=== PATIENT | male | born 1970 | race Caucasian/White ===

== ENCOUNTER 2023-04-14 13:11 | Outpatient (CLI) | payer BC ==
[~2023-04-14 13:11] MED LIST: Magnevist 469MG/ML 20 ML VIAL ONE
== END 2023-04-14 13:12 | disposition home or self-care (01) ==
LOC: CSHMRI 13:11
PROVIDERS: ATTEND Internal Medicine Rheumatology
DX: M24.111 Other articular cartilage disorders, right shoulder (principal); M79.672 Pain in left foot; M75.82 Other shoulder lesions, left shoulder; S43.432A Superior glenoid labrum lesion of left shoulder, initial encounter; M89.8X1 Other specified disorders of bone, shoulder; M65.812 Other synovitis and tenosynovitis, left shoulder; M94.8X1 Other specified disorders of cartilage, shoulder; M19.011 Primary osteoarthritis, right shoulder; M25.411 Effusion, right shoulder; M65.811 Other synovitis and tenosynovitis, right shoulder; M24.011 Loose body in right shoulder; M75.81 Other shoulder lesions, right shoulder; M75.111 Incomplete rotator cuff tear or rupture of right shoulder, not specified as traumatic; M67.921 Unspecified disorder of synovium and tendon, right upper arm
CPT/HCPCS: A9579

== ENCOUNTER 2023-11-20 09:57 | Outpatient (CLI) | payer BC ==
[2023-11-20 11:07] LABS: Anion Gap 13 mmol/L (10-20); BUN (Urea Nitrogen) 13 mg/dL (8.4-25.7); Calc. Creatinine Clearance 0 mL/min (70-130); Calcium 9.3 mg/dL (7.8-10.44); Carbon Dioxide 27 mmol/L (22-29); Chloride 107 mmol/L (98-107); Estimated GFR 101; Glucose 104 mg/dL (70-105); Potassium 3.7 mmol/L (3.5-5.1); Sodium 143 mmol/L (136-145)
== END 2023-11-20 09:58 | disposition home or self-care (01) ==
LOC: CSHLAB 09:57
PROVIDERS: ATTEND Family Medicine
DX: Z01.818 Encounter for other preprocedural examination (principal); K42.0 Umbilical hernia with obstruction, without gangrene
CPT/HCPCS: 80048; 93005; 93010

== ENCOUNTER 2023-11-26 05:56 | Day surgery (SDC) | payer BC ==
[2023-11-20 10:27] VITALS: BMI 35.4
[2023-11-26] MEDS ORDERED: EPINEPHrine 1 MG/ML VIAL ONE (06:54)
[2023-11-26] MEDS ORDERED: Bupivacaine PF 0.5% 30 ML VIAL ONE (06:54)
[2023-11-26] MEDS ORDERED: HYDROmorphone 0.5 MG/0.5 ML SYRINGE ONE (07:10)
[2023-11-26] MEDS ORDERED: Clindamycin/D5W 600 mg/50 ml Premix Bag ONE (07:10)
[2023-11-26] MEDS ORDERED: Lidocaine 2% PF 100 mg/5 ml Syringe ONE (07:11)
[2023-11-26] MEDS ORDERED: Ondansetron PF 4 MG/2 ML Vial ONE (07:11)
[2023-11-26] MEDS ORDERED: Dexamethasone 20 MG/5 ML VIAL ONE (07:11)
[2023-11-26] MEDS ORDERED: PROPOFOL 20 ML ONE (07:11)
[2023-11-26] MEDS ORDERED: Lidocaine 1% PF 5 ML VIAL ONE (07:12)
[2023-11-26] MEDS ORDERED: fentaNYL 50 mcg/mL 1 mL Vial ONE (07:13)
[2023-11-26] MEDS ORDERED: Ketorolac Tromethamine 30 MG/ML VIAL ONE (07:15)
[2023-11-26] MEDS ORDERED: Acetaminophen 325 MG TAB PO PRN (08:30)
[2023-11-26] MEDS ORDERED: HYDROcodone/Acetaminophen 5/325 mg Tablet PO PRN (08:30)
== END 2023-11-26 09:30 | disposition home or self-care (01) ==
LOC: CSHSDC 05:56
PROVIDERS: ATTEND Surgery
PROC: 0WQF0ZZ Repair Abdominal Wall, Open Approach (ICD-10-PCS; principal; 2023-11-26)
DX: K42.0 Umbilical hernia with obstruction, without gangrene (principal); I10 Essential (primary) hypertension; J45.909 Unspecified asthma, uncomplicated; E05.90 Thyrotoxicosis, unspecified without thyrotoxic crisis or storm; E78.00 Pure hypercholesterolemia, unspecified; M19.90 Unspecified osteoarthritis, unspecified site; G47.33 Obstructive sleep apnea (adult) (pediatric); Z96.619 Presence of unspecified artificial shoulder joint; Z88.0 Allergy status to penicillin; Z79.890 Hormone replacement therapy; Z79.899 Other long term (current) drug therapy
CPT/HCPCS: J0171; J1100; J1170; J1885; J2001; J2405; J2704; J3010; J3490; S0020